=== PATIENT | female | born 1940 | race Two or more races ===

== ENCOUNTER 2025-01-04 15:16 | Emergency (ER) | payer OTHER ==
[~2025-01-04] VITALS: Ht 160 cm; Wt 80.3 kg
[2025-01-04] MEDS ORDERED: ZOLOFT100 MG PO (15:36)
== END 2025-01-04 18:28 | disposition left against medical advice (07) ==
LOC: ER 15:16
DX: I82.401 Acute embolism and thrombosis of unspecified deep veins of right lower extremity (principal); R53.81 Other malaise